=== PATIENT | female | born 1955 | race American Indian/Alaskan Native ===

== ENCOUNTER 2018-09-20 09:50 | Outpatient (CLI) | payer MEDICARE ==
--- NOTE | 2018-09-20 10:35 | Mammography Report ---
Bilateral mammogram: No previous studies available for comparison. CAD study utilized. Findings: Predominance of adipose tissue bilaterally. Benign bilateral calcifications. Focal asymmetry measuring 3 mm in diameter the lower posterior left breast. Benign axillary nodes. Impression: Focal asymmetry left breast. Recommend comparison with previous studies. If previous studies are not available spot compression and if necessary sonographic examination is advised. BI-RADS CATEGORY: 0 = Needs additional imaging evaluation ACR BI-RADS MAMMOGRAPHIC CODES: 0 = Needs additional imaging evaluation; 1 = Negative; 2 = Benign; 3 = Probably benign; 4 = Suspicious; 5 = Malignant; 6 = Known biopsy-proven malignancy COMMENT: 1. Dense breast tissue, i.e., adenosis, fibrocystic changes, etc., may obscure an underlying neoplasm. 2. Approximately 10% of cancers are not detected with mammography. 3. A negative mammography report should not delay biopsy if a clinically suspicious mass is present. COMMENT: Patient follow-up letters are generated in [employer].
== END 2018-09-20 09:51 | disposition home or self-care (01) ==
LOC: MAMMO 09:50
PROVIDERS: ATTEND Student in an Organized Health Care Education/Training Program
DX: Z12.31 Encounter for screening mammogram for malignant neoplasm of breast (principal)
CPT/HCPCS: 77067